=== PATIENT | female | born 1990 | race Caucasian/White ===

== ENCOUNTER 2018-06-26 17:05 | Inpatient (IN) | payer OTHER ==
[~2018-06-26] VITALS: Ht 162.6 cm; Wt 68.0 kg
--- NOTE | 2018-06-26 17:17 | NUR ---
ADMISSION NOTE PT WAS BROUGHT UP AT THIS TIME A DIRECT ADMIT FROM [facility]. PT IS A/O X4, BREATHING EVEN AND UNLABORED ON RA, NO CURRENT COMPLAINTS OF ANY DISTRESS OR PAIN AT THIS TIME, PT HAS LEFT AC #20 IV THAT IS PATENT AND INTACT, NOTED TO HAVE LEFT CHEEK/FACE SWELLING WITH A SLIGHT PINK COLOR. SAFETY PRECAUTIONS IN PLACE, CALL LIGHT WITHIN REACH, WILL MONITOR ACCORDINGLY.
[2018-06-26] MEDS ORDERED: SUMA50TA17 PO (17:24)
[2018-06-26] MEDS ORDERED: AMOX1TAB16 PO (17:24)
[2018-06-26] MEDS ORDERED: TOPI25TA49 PO (17:24)
[2018-06-26] MEDS ORDERED: IBUP-1955 PO (17:24)
[2018-06-26] MEDS ORDERED: HYDR-3972 PO (17:24)
[2018-06-26] MEDS ORDERED: CLIN300C11 PO (17:24)
[2018-06-26] MEDS ORDERED: ETHI1TAB28 PO (17:28)
[2018-06-26] MEDS ORDERED: MAG HYDROX/AL HYDROX/SIMETH 30 ML UDC PO PRN (18:00)
[2018-06-26] MEDS ORDERED: ZOLPIDEM TARTRATE 5 MG TABLET PO PRN (18:00)
[2018-06-26] MEDS ORDERED: HYDROMORPHONE INJ 2 MG/ML DISP.SYRIN IV PRN (18:00)
[2018-06-26] MEDS ORDERED: SUMATRIPTAN SUCCINATE 100 MG TABLET PO PRN (18:00)
[2018-06-26] MEDS ORDERED: IBUPROFEN 600 MG TABLET PO PRN (18:00)
[2018-06-26] MEDS ORDERED: ACETAMINOPHEN 325 MG TABLET PO PRN (18:00)
[2018-06-26] MEDS ORDERED: MAGNESIUM HYDROXIDE 30 ML UDC PO PRN (18:00)
--- NOTE | 2018-06-26 19:03 | NUR ---
RN CLOSING NOTE PT IN BED AT LOWEST AND LOCKED POSITION WITH SIDE RAILS UP X2, A/O X4, BREATHING EVEN AND UNLABORED, NO CURRENT COMPLAINTS OF ANY PAIN OR DISTRESS NOTED, IV IS PATENT AND INTACT, SAFETY PRECAUTIONS, CALL LIGHT WITHIN REACH, ALL NEEDS ATTENDED TO, WILL ENDORSE TO ONCOMING FIRE FIGHTERS DISPATCHER RN FOR TIMUR.
[2018-06-26] MEDS: IV NS 0.9% 1,000 ML IV PRN (19:09)
--- NOTE | 2018-06-26 19:20 | NUR ---
MS/RN NOTES RECEIVED PT. LYING IN BED. PT. IS AWAKE, ALERT AND ORIENTED X4. BREATHING EVEN AND UNLABORED ON ROOM AIR. NO SOB, RESPIRATORY DISTRESS OR COMPLAINTS OF PAIN NOTED AT THIS TIME. PT. WITH LEFT SIDED FACIAL SWELLING NOTED. PT. WITH LEFT AC 20 GAUGE PERIPHERAL IV PRESENT, PATENT AND INTACT ADMINISTERING TO PT. NS @ 75 ML/HR. BED LOCKED AND IN LOWEST POSITION, SIDE RAILS UP X2, CALL LIGHT WITHIN REACH, WILL CONTINUE TO MONITOR.
[2018-06-26] MEDS: ONDANSETRON HCL/PF 4 MG/2 ML VIAL IVP PRN (20:09)
[2018-06-26] MEDS: DOCUSATE SODIUM 100 MG CAPSULE PO SCH (20:09)
[2018-06-26 20:25] LABS: CREATININE 0.8 mg/dL (0.6-1.3); POTASSIUM 3.1 mmol/L (3.5-5.1)
[2018-06-26] MEDS ORDERED: FEE PK DOSING 1 MIN EA MC ONE (20:33)
[2018-06-26] MEDS: VANCOMYCIN 1 GM in IV D5W 250 ML IV SCH (21:23)
[2018-06-26 21:33] VITALS: BP 104/65
--- NOTE | 2018-06-27 00:02 | NUR ---
MS/RN NOTES NOTIFIED [employer] TECHNICIAN DR. REYES PT. POTASSIUM RESULTED AT 3.[address] REYES NEW ORDER: POTASSIUM CHLORIDE 40MEQ PO ONCE NOW. WILL CARRY OUT ORDER. WILL CONTINUE TO MONITOR.
[2018-06-27] MEDS: PIPERACILLIN /TAZOBACTAM 3.375 G in IV D5W 50 ML IV SCH ×5 (00:12→23:24)
[2018-06-27] MEDS ORDERED: POTASSIUM CHLORIDE 20 MEQ TAB.PRT.SR PO ONE (00:30)
[2018-06-27] MEDS: VANCOMYCIN 1 GM in IV D5W 250 ML IV SCH ×3 (05:11→21:03)
[2018-06-27] MEDS: HYDROCODONE/APAP 5/325MG 1 EACH TABLET PO PRN ×2 (06:09→17:23)
[2018-06-27 06:32] LABS: BASOPHILS % (AUTO) 0.3 % (0.0-2.0); HEMATOCRIT 35 % (33-45); HEMOGLOBIN 12.4 g/dL (11.5-14.8); LYMPHOCYTES # (AUTO) 1.8 /CMM (0.8-4.8); LYMPHOCYTES % (AUTO) 33.6 % (20.0-44.0); MEAN CORPUSCULAR HGB CONC 35 g/dl (31.0-36.0); MEAN CORPUSCULAR VOLUME 88 fL (82-100); MONOCYTES # (AUTO) 0.5 /CMM (0.1-1.30); NEUTROPHILS % (AUTO) 55.1 % (43.0-81.0); PLATELET COUNT (AUTO) 190 /CMM (150-450); RED BLOOD CELL COUNT(AUTO) 3.97 MIL/uL (4.0-5.2); WHITE BLOOD COUNT (AUTO) 5.4 K/uL (4.3-11.0)
--- NOTE | 2018-06-27 06:53 | NUR ---
MS/RN NOTES PT. IS LYING IN BED RESTING. BREATHING EVEN AND UNLABORED ON ROOM AIR. NO SOB, RESPIRATORY DISTRESS OR COMPLAINTS OF PAIN NOTED AT THIS TIME. PT. WITH LEFT SIDED FACIAL SWELLING NOTED. PT. WITH LEFT AC 20 GAUGE PERIPHERAL IV PRESENT, PATENT AND INTACT ADMINISTERING TO PT. NS @ 75 ML/HR. ALL PT. NEEDS MET. BED LOCKED AND IN LOWEST POSITION, SIDE RAILS UP X2, CALL LIGHT WITHIN REACH, WILL ENDORSE TO DAYSHIFT NURSE FOR CONTINUITY OF CARE.
[2018-06-27 06:57] LABS: THYROID STIMULATING HORMONE 2.635 uIU/mL (0.358-3.74)
[2018-06-27 07:04] LABS: ALBUMIN 3.1 g/dL (3.4-5.0); BILIRUBIN,TOTAL 0.7 mg/dL (0.2-1.0); CALCIUM, SERUM 8.7 mg/dL (8.5-10.1); CREATININE 0.9 mg/dL (0.6-1.3); PHOSPHORUS 3.1 mg/dL (2.5-4.9); TOTAL PROTEIN, SERUM 6.5 g/dL (6.4-8.2)
[2018-06-27 08:00] VITALS: BP 99/65
--- NOTE | 2018-06-27 08:00 | NUR ---
RN NOTES RECEIVED PATIENT IN THE ROOM, A/O X4, PATIENT HAS NO ACUTE RESPIRATORY DISTRESS, UNLABORED. PATIENT HAS LWFT SIDE OF FACE SWOLLEN, BUT REFUSED PAIN AT THIS TIME. SCHEDULED MEDICATION ADMINISTERED, V/S STABLE, ENCOURAGED PATIENT TO EXPRESS FEELINGS AND CONCERNS. IV ACCESS ON LEFT AC AREA INTACT. PATIENT USING BATHROOM. CALL LIGHT WITHIN TO REACH. SAFETY PRECAUTION MAINTAINED ALL THE TIME.
[2018-06-27] MEDS: DOCUSATE SODIUM 100 MG CAPSULE PO SCH ×2 (09:20→17:22)
[2018-06-27] MEDS: PANTOPRAZOLE 40 MG TABLET.DR PO SCH (09:20)
[2018-06-27] MEDS: TOPIRAMATE 25 MG TABLET PO SCH ×2 (09:20→17:22)
[2018-06-27] MEDS: [UNRECOGNIZED DRUG - REMARK] PO SCH (10:45)
--- NOTE | 2018-06-27 13:31 | NUR ---
RN NOTES ADMINISTERED MOTRIN 600 MG PO PRN FOR GENERALIZED PAIN 5/10 PER PATIENT REQUEST, CONTINUED MONITORING.
--- NOTE | 2018-06-27 14:08 | NUR ---
Radiology awaiting test before CT procedure. RN will call when ready.
--- NOTE | 2018-06-27 14:15 | NUR ---
RN NOTES UA COLLECTED FOR TEST CLEAN CATCH.
--- NOTE | 2018-06-27 14:30 | NUR ---
RN NOTES PATIENT PLANT MECHANIC FOR CT OF HEAD WITH CONTRAST AT THIS TIME, PLANT MECHANIC BY TECH.
--- NOTE | 2018-06-27 15:00 | NUR ---
RN NOTES PATIENT BACK FROM CT, STABLE, MEDICATION WERE ADMINISTERED EFFECTIVE, CONTINUED MONITORING.
[2018-06-27] MEDS ORDERED: IV NS 0.9% 250 ML IV ONE (15:42)
[2018-06-27] MEDS ORDERED: IOHEXOL-300 100 ML VIAL IV ONE (15:42)
[2018-06-27] MEDS ORDERED: CT SWABBABLE VALVE TRANS SET 1 EA INFUS.SET MC ONE (15:42)
[2018-06-27 16:00] VITALS: BP 113/72
[2018-06-27] MEDS: IV NS 0.9% 1,000 ML IV PRN (17:23)
--- NOTE | 2018-06-27 17:23 | NUR ---
RN NOTES ADMINISTERED NARCO 5/325 MG PO PRN FOR GENERALIZED PAIN 5/10 PER PATIENT REQUEST, V/S TAKEN STABLE, ALSO ADMINISTERED SCHEDULED MEDICATION, INFUSING ZOSYN 100 ML/HR INTACT IN LEFT UA, CALL LIGHT WITHIN TO REACH. CONTINUED MONITORING.
--- NOTE | 2018-06-27 18:39 | NUR ---
RN NOTES PATIENT STABLE, MEDICATION WERE ADMINISTERED FOR PAIN EFFECTIVE, LYING IN THE BED LISTENING MUSIC, CALL LIGHT WITHIN TO REACH. ENDORSED ONCOMING NURSE FOR PLAN OF CARE.
--- NOTE | 2018-06-27 19:30 | NUR ---
MS RN NOTE RECEIVED PT IN STABLE CONDITION A&O X4, ABLE TO MAKE NEEDS KNOWN. PT CURRENTLY IN BED USING PHONE. NO SIGNS OF SOB OR DISTRESS, NO C/O PAIN. ALL CURRENT NEEDS ATTENDED TO. SAFETY PRECAUTIONS IN PLACE: BED LOW, LOCKED, UPPER RAILS UP, AND CALL LIGHT WITHIN REACH. WILL CONT. TO MONITOR.
[2018-06-27 20:00] VITALS: BP 102/72
[2018-06-27] MEDS: ONDANSETRON HCL/PF 4 MG/2 ML VIAL IVP PRN (20:12)
--- NOTE | 2018-06-27 20:12 | NUR ---
MS RN NOTE PRN ZOFRAN GIVEN, PT. C/O NAUSEA. WILL CONT. TO MONITOR.
--- NOTE | 2018-06-27 20:42 | NUR ---
MS RN NOTE NAUSEA REASSESSED. PT STATES THAT NAUSEA IS RELIEVED. WILL CONT. MONITOR.
[2018-06-28] MEDS: VANCOMYCIN 1 GM in IV D5W 250 ML IV SCH (04:20)
[2018-06-28] MEDS: PIPERACILLIN /TAZOBACTAM 3.375 G in IV D5W 50 ML IV SCH ×2 (05:21→11:44)
--- NOTE | 2018-06-28 06:35 | NUR ---
MS RN NOTE PT IN STABLE CONDITION A&O X4, ABLE TO MAKE NEEDS KNOWN. PT CURRENTLY IN BED RESTING. NO SIGNS OF SOB OR DISTRESS, NO C/O PAIN. ALL CURRENT NEEDS ATTENDED TO. SAFETY PRECAUTIONS IN PLACE: BED LOW, LOCKED, UPPER RAILS UP, AND CALL LIGHT WITHIN REACH. WILL CONT. TO MONITOR AND ENDORSE TO NEXT SHIFT FOR TIMUR.
[2018-06-28 07:51] VITALS: BP 99/49
[2018-06-28 08:00] VITALS: BP 99/49
--- NOTE | 2018-06-28 08:00 | NUR ---
RN OPENING NOTES Received Patient comfortable and resting in bed. A/O x 4. Breathing even and unlabored in room air. VS stable with no acute signs and symptoms of distress. BP-99/49 HR-76 RR-16 Temp-98.3F O2 Sat 96% on RA. Denies pain. Peripheral IV on LEFT UPPER ARM, patent, clean, dry and intact. No redness, swelling nor pain at site. IV flushes well. IVF NS running at 75ml/hr. All scheduled medications administered. Patient seen by Mohan ESPARZA. Possible discharge today. Safety precautions in place. Bed locked and kept in low position. Call light within reach. Will continue to monitor.
[2018-06-28 08:20] LABS: CALCIUM, SERUM 8.4 mg/dL (8.5-10.1); CREATININE 1.3 mg/dL (0.6-1.3); POTASSIUM 3.7 mmol/L (3.5-5.1)
[2018-06-28 08:39] LABS: BASOPHILS % (AUTO) 0.3 % (0.0-2.0); EOSINOPHILS % (AUTO) 2.4 % (0.0-6.0); HEMATOCRIT 36 % (33-45); HEMOGLOBIN 11.9 g/dL (11.5-14.8); LYMPHOCYTES # (AUTO) 1.1 /CMM (0.8-4.8); LYMPHOCYTES % (AUTO) 19.7 % (20.0-44.0); MEAN CORPUSCULAR HGB CONC 34 g/dl (31.0-36.0); MEAN CORPUSCULAR VOLUME 92 fL (82-100); MONOCYTES # (AUTO) 0.7 /CMM (0.1-1.30); MONOCYTES % (AUTO) 11.8 % (2.0-12.0); NEUTROPHILS # (AUTO) 3.6 /CMM (1.8-8.9); NEUTROPHILS % (AUTO) 65.8 % (43.0-81.0); PLATELET COUNT (AUTO) 168 /CMM (150-450); RED BLOOD CELL COUNT(AUTO) 3.86 MIL/uL (4.0-5.2); WHITE BLOOD COUNT (AUTO) 5.5 K/uL (4.3-11.0)
[2018-06-28] MEDS: PANTOPRAZOLE 40 MG TABLET.DR PO SCH (08:47)
[2018-06-28] MEDS: TOPIRAMATE 25 MG TABLET PO SCH (08:47)
[2018-06-28] MEDS: DOCUSATE SODIUM 100 MG CAPSULE PO SCH (08:47)
[2018-06-28] MEDS: [UNRECOGNIZED DRUG - REMARK] PO SCH (08:51)
--- NOTE | 2018-06-28 10:00 | NUR ---
rn notes patient stable , going to discharge home per Mohan ESPARZA.
[2018-06-28] MEDS ORDERED: AMOX-430 PO (11:28)
--- NOTE | 2018-06-28 13:10 | NUR ---
DISCHARGE NOTES PATIENT DISCHARGE HOME AT THIS TIME, STABLE. PATIENT MED COMPLAINT, V/S STABLE, REFUSED PAIN AT THIS TIME. MED RECONCILIATION AND DISCHARGE ORDER REVIEWED AND EXPLAINED TO PATIENT. PATIENT VERBALIZED UNDERSTANDING. PRESCRIPTION HANDED TO THE PATIENT. BELONGING WITH THE PATIENT. PATIENT WILL FOLLOW PRIMARY MD, AND ENT SPECIALIST. ESCORTED PATIENT TO THE LOBBY FOR SAFETY. PATIENT SIGN PAPERWORK. PATIENT PICT UP BY NAME CLEM PHONE #[phone].
[2018-06-28] MEDS ORDERED: VANCOMYCIN 1 GM in IV D5W 250 ML IV SCH (17:00)
== END 2018-06-28 13:00 | disposition home or self-care (01) | DRG 383 ==
LOC: MED 17:05
PROVIDERS: ADMIT Nurse Practitioner Acute Care; ATTEND Nurse Practitioner Acute Care
DX: L03.211 Cellulitis of face (principal); E44.1 Mild protein-calorie malnutrition; G43.909 Migraine, unspecified, not intractable, without status migrainosus; I34.1 Nonrheumatic mitral (valve) prolapse; J32.0 Chronic maxillary sinusitis; R73.9 Hyperglycemia, unspecified; Z88.2 Allergy status to sulfonamides; E88.09 Other disorders of plasma-protein metabolism, not elsewhere classified; J01.00 Acute maxillary sinusitis, unspecified
CPT/HCPCS: 36415; 70487-TC; 80048-TC; 80053-TC; 80061-TC; 80202-TC; 83735-TC; 84100-TC; 84443-TC; 84703-TC; 85025-TC; 87081-TC; G0378; J2405; J2543; J3370; J7030; J7050; J7060; Q9967